=== PATIENT | female | born 1985 | race Caucasian/White ===

== ENCOUNTER 2022-01-04 11:50 | Day surgery (SDC) | payer BC ==
[2022-01-04] MEDS ORDERED: hydrALAZINE 20 MG/ML VIAL SLOW IVP PRN (13:26)
[2022-01-04 14:51] LABS: Fetal Membranes Rupture No Membranes Rupture (No Rupture)
[2022-01-04 15:29] LABS: Bilirubin Neg (Negative); Blood, Urine Negative (Negative); Glucose, Urine (Dipstick) Normal (Negative); Ketone, Urine Negative (Negative); Leukocyte 25 (Negative); Nitrite Negative (Negative); Protein, Urine (Dipstick) Negative (Neg-Trace); Urobilinogen Normal mg/dL (Less than 2)
[2022-01-04 15:30] LABS: Clarity Clear (Clear)
[2022-01-04 15:31] LABS: Urine Culture Reflex No No
[2022-01-04 15:48] LABS: RBC/HPF None Seen HPF (0-3); Squamous Epithelial 0-3 HPF (0-3); WBC/HPF 0-3 HPF (0-3)
[2022-01-04 15:49] LABS: Bacteria/HPF 2+ HPF (None Seen)
== END 2022-01-04 16:15 | disposition home or self-care (01) ==
LOC: CSHLD/OP 11:50
PROVIDERS: ATTEND Student in an Organized Health Care Education/Training Program
DX: O44.42 Low lying placenta NOS or without hemorrhage, second trimester (principal); O99.891 Other specified diseases and conditions complicating pregnancy; N89.8 Other specified noninflammatory disorders of vagina; O99.512 Diseases of the respiratory system complicating pregnancy, second trimester; J45.909 Unspecified asthma, uncomplicated; O34.219 Maternal care for unspecified type scar from previous cesarean delivery; Z3A.26 26 weeks gestation of pregnancy; Z86.16 Personal history of COVID-19; Z88.1 Allergy status to other antibiotic agents; Z91.040 Latex allergy status
CPT/HCPCS: 81001; 84112; 87086; 87480; 87510; 87660